=== PATIENT | male | born 2005 | race Caucasian/White ===

== ENCOUNTER 2025-09-07 13:00 | Emergency (ER) | payer MEDICAID, SELFPAY ==
--- NOTE | 2025-09-07 13:22 | PD.EDADULT ---
ED General RME/HPI General Chief complaint: General Adult/Misc Complain Stated complaint: GET BLOOD DRAWN FOR BLOOD TYPE PER MD Time Seen by Provider: 09/07/25 13:07 Arrival date/time: 09/07/25 13:00 Limitations: no limitations RME / HPI RME / HPI narrative: 20 year old male with no stated medical history presents to the ED to get his blood type checked today. Patients significant other is currently and is requesting blood check to decide whether she will need the Rhogam injection. Patient has no complaints, concerns, or complaints. Related Data Allergies Allergy/AdvReac Type Severity Reaction Status Date / Time No Known Allergies Allergy Verified 09/07/25 13:02 Review of Systems Review of Systems Systems Reviewed: All systems reviewed, normal except as documented Past Medical History Social History SMOKING STATUS: Current every day smoker ED Exam General Limitations: Present no limitations General appearance: Present alert and in no apparent distress Head Head exam: Present atraumatic and normocephalic Eye Eye exam: Present normal appearance, PERRL and EOMI ENT ENT exam: Present normal exam, normal oropharynx and mucous membranes moist Neck Neck exam: Present normal inspection and full ROM Chest Chest inspection: Present normal inspection Respiratory Respiratory exam: Absent respiratory distress Cardiovascular Cardiovascular exam: Present regular rate, normal rhythm and normal heart sounds Abdominal Exam Abdominal exam: Present soft; Absent distention Extremities Exam Extremities exam: Present normal inspection and full ROM Neurological Exam Neurological exam: Present alert and oriented X3 Psychiatric Psychiatric exam: Present normal affect and normal mood Skin Skin exam: Present warm, dry, intact and normal color Course Quality Measures none Orders Category Date Time Status Type and Screen Stat Lab 09/07/25 13:57 Completed Vital Signs Vital signs: Vital Signs Temperature 98.6 F 09/07/25 13:29 Pulse Rate 88 09/07/25 13:29 Respiratory Rate 18 09/07/25 13:29 Blood Pressure 124/60 09/07/25 13:29 Pulse Oximetry (%) 100 09/07/25 13:29 Oxygen Delivery Method Room Air 09/07/25 13:29 Discharge Plan Plan Patient Disposition: HOME (Self Care) Prescriptions/Referrals Referrals: Marco Reed MD [Primary Care Provider, Family Practice] - In 1 week Problem List Clinical Impression: Blood type O+ Patient/Caregiver Discharge Instructions Additional Instructions: Please continue working with your primary care doctor and discuss your questions with regards to fertility and conception. Please return to the emergency room immediately if you have any worsening symptoms or symptoms of concern Print Language: Italian Stand Alone Forms: Amira Award Info., Patient Portal Info Letter MDM Narrative MDM hospital course (for use when minimal MDM required): IHortencia, am scribing for and in the presence of Dr. Bermeo. Patient is a 20-year-old male with no significant past medical history to the emergency department to get his blood type tested. Vital signs and exam as listed. Patient without any complaints, no chest pain no shortness of breath no signs of bleeding. Do not suspect acute catastrophic process happening at this time. Ordered patient's type and screen. Patient's blood type is O+. 1605: At the request of the patient, I updated both patient and significant other. They are in agreement with plan to DC home and fu with PCP. Clinical Information Provided by: patient Medical Records reviewed None (No previous ED visits for review ) Meds/Rx considered, not ordered None Labs/Rad/Tests considered, not ordered None Chronic Illness/Social Conditions which may negatively complicate care or outcome(s)-explain: None or not applicable EKG EKG not done Labs Labs: see narrative above Imaging Imaging interpretation: none Medication Administration(s) none Diagnosis Diagnoses ruled out and/or further discussions: Blood type O+
[2025-09-07 13:29] VITALS: BP 124/60; PULSE 88; RESP 18; TEMP 37; O2SAT 100
== END 2025-09-07 16:35 | disposition home or self-care (01) ==
PROVIDERS: Emergency Provider Emergency Medicine; PCP Family Medicine
DX: Z01.83 Encounter for blood typing (principal); Z67.40 Type O blood, Rh positive
CPT/HCPCS: 36415; 86850; 86900; 86901; 99282